=== PATIENT | male | born 2000 | race Caucasian/White ===

== ENCOUNTER 2024-04-18 09:54 | Day surgery (SDC) | payer OTHER ==
[2024-04-18] MEDS ORDERED: EPINEPHrine 1 MG/ML VIAL ONE (10:27)
[2024-04-18] MEDS ORDERED: Bupivacaine 0.25% HCL 30 ML VIAL ONE (10:27)
[2024-04-18 10:31] VITALS: BMI 22.8
[2024-04-18] MEDS ORDERED: Fentanyl 250 MCG/5 ML VIAL ONE (11:02)
[2024-04-18] MEDS ORDERED: PROPOFOL 20 ML ONE (11:02)
[2024-04-18] MEDS ORDERED: Rocuronium Bromide 10 MG/ML (10ML VIAL) ONE (11:05)
[2024-04-18] MEDS ORDERED: Lidocaine 2% PF 5 ML VIAL ONE (11:05)
[2024-04-18] MEDS ORDERED: Ketorolac Tromethamine 30 MG (1 mL) VIAL ONE (11:18)
[2024-04-18] MEDS ORDERED: Dexamethasone 20 MG/5 ML VIAL ONE (11:18)
[2024-04-18] MEDS ORDERED: Ondansetron PF 4 MG/2 ML Vial ONE (11:18)
[2024-04-18] MEDS ORDERED: SUGAMMADEX SODIUM 200 MG/2 ML VIAL ONE (11:42)
[2024-04-18] MEDS ORDERED: HYDROcodone/Acetaminophen 5/325 mg Tablet ONE (12:37)
[2024-04-18] MEDS ORDERED: Ibuprofen 200 MG TAB ONE (13:45)
== END 2024-04-18 14:25 | disposition home or self-care (01) ==
LOC: CSHSDC/OP 09:54
PROVIDERS: ATTEND Surgery
PROC: 0DTJ4ZZ Resection of Appendix, Percutaneous Endoscopic Approach (ICD-10-PCS; principal; 2024-04-18)
DX: K35.80 Unspecified acute appendicitis (principal); Z91.010 Allergy to peanuts; Z88.8 Allergy status to other drugs, medicaments and biological substances
CPT/HCPCS: 88304; A4649; J0171; J0665; J1100; J1885; J2001; J2405; J2704; J3010